=== PATIENT | male | born 1995 | race Caucasian/White ===

== ENCOUNTER 2020-04-29 14:13 | Emergency (ER) | payer OTHER, SELFPAY ==
--- NOTE | ~2020-04-29 | XR_ITS ---
EXAMINATION: XR wrist RT min 3V DATE: 04/29/2020 14:29 INDICATION: Right wrist pain, initial encounter TECHNIQUE: Posteroanterior, ulnar deviation, oblique, and lateral views of the right wrist were obtai estefany. COMPARISON: None available FINDINGS: A subtle lucency is seen along the medial margin of the scaphoid on the ulnar deviation vie w. Otherwise, the visualized osseous structures are unremarkable. The joint spaces are maintained. IMPRESSION: 1. Subtle lucency in the medial surface of the scaphoid which could reflect a vascular channel katy ly recommend correlation for tenderness for possible nondisplaced fracture. Reviewed, dictated and finalized at location A. IMPRESSION: 1. Subtle lucency in the medial surface of the scaphoid which could reflect a v ascular channel however recommend correlation for tenderness for possible nondi splaced fracture.
[2020-04-29 14:20] VITALS: BP 120/96; PULSE 95; RESP 17; TEMP 36.8; O2SAT 99
--- NOTE | 2020-04-29 14:59 | ED.UPPEXIN ---
HPI - Extremity Injury (Upper) General Chief Complaint: Extremity Injury, Upper Stated Complaint: wrist injury Time Seen by Provider: 04/29/20 14:29 Source: patient Mode of arrival: ambulatory Limitations: no limitations History of Present Illness HPI narrative: This is a 24-year-old male that presents emergency department for right wrist injury this morning. Reports he was on a skateboard and fell off landing on his right arm. Reports an injury to the right wrist and elbow. Reports pain of the right wrist especially around the thumb. Denies hitting his head, loss of consciousness, decreased range of motion or numbness. Related Data Allergies Allergy/AdvReac Type Severity Reaction Status Date / Time latex AdvReac Mild Rash Verified 04/29/20 14:24 Review of Systems Review of Systems: Narrative: CONSTITUTIONAL: Denies fever MUSCULOSKELETAL: Reports joint pain, and myalgia. NEUROLOGIC: Denies numbness, or weakness. All systems reviewed & are unremarkable except as noted in HPI and below PMFSH Family History Family History (Updated 05/23/17 @ 15:41 by DOCTOR UNKNOWN) Other Hypertension Social History Social History Smoking status: Never smoker Second hand tobacco smoke exposure: No Alcohol intake: current Gender identity (if verbalized by the patient): Male Exam Narrative: Exam Narrative: GENERAL: Well-appearing, well-nourished, and in no acute distress. HEAD: Normocephalic, atraumatic. EYES: EOMI. EXTREMITIES: Normal range of motion. No edema or obvious deformity. No tenderness to palpation of the right elbow. Tender to palpation of the right snuffbox. Normal radial pulses. Normal sensation SKIN: Warm, dry, no rash. NEURO: No focal deficits. Alert and oriented x3. PSYCH: Normal mood and affect Course Vital Signs Vital signs: Vital Signs Temperature 98.2 F 04/29/20 14:20 Pulse Rate 95 04/29/20 14:20 Respiratory Rate 17 04/29/20 14:20 Blood Pressure 120/96 H 04/29/20 14:20 Pulse Oximetry 99 04/29/20 14:20 Temperature 98.2 F 04/29/20 14:20 Pulse Rate 95 04/29/20 14:20 Respiratory Rate 17 04/29/20 14:20 Blood Pressure 120/96 H 04/29/20 14:20 Pulse Oximetry 99 04/29/20 14:20 Procedures Orthopedic Splinting/Casting Injury #1: Splinting/Casting Date: 04/29/20 Splinting/Casting Time: 16:00 Side: right Upper Extremity Immobilizer: thumb spica Splint: customized in ED OCL: thumb spica Pre-Procedure Neuro Vascular Exam: normal Post-Procedure Neuro Vascular Exam: normal MDM - Extremity Injury (Upper) MDM Narrative Medical decision making narrative: Patient presents the emergency department for right wrist pain after an injury this morning. Right wrist x-ray shows a subtle lucency in the medial surface of the scaphoid which could represent nondisplaced fracture. Patient is tender in this area. Patient was placed in a thumb spica. Spoke with Dr. Blake about patient and work-up will follow-up in clinic. Patient and family were given warnings to return to the ER Imaging Data Radiologist's impression: ITS Impressions Wrist X-Ray 04/29/20 14:34 IMPRESSION: 1. Subtle lucency in the medial surface of the scaphoid which could reflect a vascular channel however recommend correlation for tenderness for possible nondisplaced fracture. Critical Care Time Critical Care Time Critical Care Time: No Discharge Plan Discharge Clinical Impression: Closed nondisplaced fracture of scaphoid bone of right wrist Qualifiers: Encounter type: initial encounter Scaphoid bone location: unspecified portion of scaphoid Qualified Code(s): S62.001A - Unspecified fracture of navicular [scaphoid] bone of right wrist, initial encounter for closed fracture Patient Disposition: Home, Self-Care Condition: Stable Instructions: Wrist Fracture in Adults (ED) Additional Instructions: Return to the emergency d
[2020-04-29 16:45] VITALS: BP 129/64; PULSE 45; RESP 16; TEMP 37.1; O2SAT 98
== END 2020-04-29 16:46 | disposition home or self-care (01) ==
PROVIDERS: Emergency Provider Emergency Medicine; PCP Internal Medicine
DX: S62.001A Unspecified fracture of navicular [scaphoid] bone of right wrist, initial encounter for closed fracture (principal); V00.131A Fall from skateboard, initial encounter; Y93.51 Activity, roller skating (inline) and skateboarding
CPT/HCPCS: 29125; 73110; 99284